=== PATIENT | male | born 1995 | race Caucasian/White ===

== ENCOUNTER 2022-07-18 01:10 | Emergency (ER) | payer SELFPAY ==
[~2022-07-18] VITALS: Ht 180.3 cm; Wt 80.7 kg
[2022-07-18 01:34] VITALS: BP 121/76
--- NOTE | 2022-07-18 01:38 | NUR ---
pt to lobby to a/w evaluation
[2022-07-18 01:55] VITALS: BP 121/76
--- NOTE | 2022-07-18 01:55 | NUR ---
covering primary rn for lunch relief. see complete assessment
[2022-07-18] MEDS ORDERED: MIRABULK PO (03:16)
[2022-07-18] MEDS ORDERED: BISA-213 RC (03:16)
== END 2022-07-18 03:32 | disposition home or self-care (01) ==
LOC: MED 01:10
DX: K59.00 Constipation, unspecified (principal); Z79.899 Other long term (current) drug therapy
CPT/HCPCS: 99281